=== PATIENT | male | born 1960 | race Caucasian/White ===

== ENCOUNTER 2018-06-18 02:52 | Emergency (ER) | payer SELFPAY ==
[~2018-06-18] VITALS: Ht 188 cm; Wt 113.4 kg
--- NOTE | 2018-06-18 03:10 | NUR ---
Rx discount card provided for pt. Informed him to get prescriptions filled. Informed him to look enter the website on his phone and it would list the more affordable place to get his Rx. Pt verbalized understanding. Pt D/C home NAD noted. Vitals stable.
== END 2018-06-18 03:16 | disposition left against medical advice (07) ==
LOC: ER 02:52
DX: M79.89 Other specified soft tissue disorders (principal)